=== PATIENT | female | born 1995 | race Caucasian/White ===

== ENCOUNTER 2022-05-30 14:23 | Emergency (ER) | payer MEDICAID ==
[~2022-05-30] VITALS: Ht 152.4 cm; Wt 40.8 kg
[2022-05-30] MEDS ORDERED: IV NORMAL SALINE 1000 ML BAG IV ONE (15:00)
[2022-05-30 15:05] LABS: *BILIRUBIN,URIN NEGATIVE (NEGATIVE); *CLARITY,URINE CLEAR (CLEAR); *COLOR,URINE YELLOW (YELLOW); *KETONES,URINE NEGATIVE (NEGATIVE); *UROBILINOGEN,URINE 0.2 E.U./dl (NORMAL); LEUKOCYTE ESTERASE ,URINE NEGATIVE (NEGATIVE); NITRITE, URINE NEGATIVE (NEGATIVE); UGLUCOSE NEGATIVE (NEGATIVE)
[2022-05-30 15:08] LABS: HEMATOCRIT 41.5 % (31.2-41.9); MEAN CORPUSCULAR HEMOGLOBIN 28.4 uug (24.7-32.8); MEAN CORPUSCULAR VOLUME 87.1 fL (75.5-95.3); PLATELET COUNT (AUTO) 334 K/uL (179-408)
[2022-05-30 15:15] LABS: *BLOOD, URINE TRACE (NEGATIVE)
[2022-05-30 15:24] LABS: BILIRUBIN,DIRECT 0.1 mg/dL (0.0-0.2); BILIRUBIN,TOTAL 0.2 mg/dL (0.2-1.0); CREATININE 0.6 mg/dL (0.6-1.3); POTASSIUM 3.4 mmol/L (3.5-5.1); TOTAL PROTEIN, SERUM 7.7 g/dL (6.4-8.2)
[2022-05-30] MEDS ORDERED: HYDR-3980 PO (15:25)
[2022-05-30] MEDS ORDERED: MIRT-121 PO (15:25)
[2022-05-30] MEDS ORDERED: ALPR0.255 PO (15:25)
[2022-05-30] MEDS ORDERED: ONDANSETRON 4 MG/2 ML VIAL IV ONE ×2 (15:30→16:45)
[2022-05-30 15:34] LABS: WBC,URINE 0-3 /HPF (0-3)
[2022-05-30 15:35] LABS: *URINE HCG, QUAL NEGATIVE (NEGATIVE); BACTERIA,URINE NONE SEEN /HPF (NONE SEEN); SQUAMOUS EPITHELIAL CELL,UR FEW /HPF (NONE SEEN)
[2022-05-30] MEDS ORDERED: ONDANSETRON 4 MG/2 ML VIAL ONE ×2 (15:37→16:40)
[2022-05-30] MEDS ORDERED: IV NORMAL SALINE 250 ML IV ONE (16:04)
[2022-05-30] MEDS ORDERED: IOHEXOL 300MG/ML 100 ML INFUS..BTL ONE (16:04)
[2022-05-30] MEDS ORDERED: SWABABLE VALVE TRANSFER SET EA MC ONE (16:04)
--- NOTE | 2022-05-30 16:35 | NUR ---
Patient complains of back pain 10/ and is still nauseous at this time. Dr. Hollis notified.
[2022-05-30] MEDS ORDERED: MORPHINE SULFATE 4 MG/1 ML DISP.SYRIN ONE (16:40)
[2022-05-30] MEDS ORDERED: MORPHINE SULFATE 4 MG/1 ML DISP.SYRIN IV ONE (16:45)
--- NOTE | 2022-05-30 16:55 | NUR ---
Patient resting in bed with no acute distress noted.
[2022-05-30] MEDS ORDERED: ONDA4TAB5 PO (17:41)
--- NOTE | 2022-05-30 17:54 | NUR ---
Patient discharged to home in stable condition. Written and verbal after care instructions given. Patient verbalizes understanding of instructions. Stressed follow up or return to ER for worsening s/s.
[2022-05-30 17:55] VITALS: BP 128/79
--- NOTE | 2022-05-30 17:55 | NUR ---
Advised patient not to drive home.
== END 2022-05-30 17:55 | disposition home or self-care (01) ==
LOC: ER 14:23
DX: M54.50 Low back pain, unspecified (principal); R11.2 Nausea with vomiting, unspecified; R19.7 Diarrhea, unspecified; R50.9 Fever, unspecified; Z20.822 Contact with and (suspected) exposure to COVID-19; G89.29 Other chronic pain; S39.92XS Unspecified injury of lower back, sequela; V49.9XXS Car occupant (driver) (passenger) injured in unspecified traffic accident, sequela; Z86.69 Personal history of other diseases of the nervous system and sense organs
CPT/HCPCS: 99285; 96374; 72131; 96361; 96375; 87426; 80076; 80048; 81001; 84703; 83690; 85025; 87040 ×2; 36415; 96376; 83605; J2405 ×2; Q9967; J2270; J7040; A4663